=== PATIENT | female | born 1950 | race Two or more races ===

== ENCOUNTER 2018-02-01 08:55 | Emergency (ER) | payer OTHER ==
[~2018-02-01] VITALS: Ht 160 cm; Wt 61.2 kg
[~2018-02-01 08:55] MED LIST: CATAFLAN; CITALOPRAM HBR40 MG PO; CLONAZEPAM1 MG; EFFEXOR XR37.5 MG; SEROQUEL25 MG; TRANXENE T PO; WELLBUTRIN SR200 MG PO
== END 2018-02-01 12:00 | disposition home or self-care (01) ==
LOC: ER 08:55
DX: M25.522 Pain in left elbow (principal)